=== PATIENT | male | born 1970 | race Caucasian/White ===

== ENCOUNTER 2017-05-07 15:36 | Emergency (ER) | payer OTHER ==
[~2017-05-07] VITALS: Ht 187.3 cm; Wt 105.0 kg
[2017-05-07 15:41] VITALS: BP 129/86; PULSE 106; RESP 16; O2SAT 99
--- NOTE | 2017-05-07 17:27 | ED.REPORT ---
HPI-Extremity Problem Lower Date of Service May 07, 2017 ED Provider: History of Present Illness: 46 year old male here for right ankle and knee pain and swelling. Onset about 5 days ago with his right ankle pain and swelling went down to his foot and then traveled up to above his knee. The pain is excruciating in his ankle and knee. Most pain is located over the ATFL on the right side as well as the medial joint line of the knee. No erythema noted. He had something similar 2 weeks ago in his left ankle for which he received NSAIDs and resolved. No history of psoriasis, no fever, no other joint pain, no URI symptoms or vomiting. He has noted a 13 pound weight loss, he states related to the pain. Denies recent forgein travel, no tick bites, no fever, no recent URI s/s. Nursing Notes Stated Complaint: RIGHT LEG BLOOD CLOT/SENT FROM [facility] Chief Complaint: Extremity Trauma Nursing Notes Reviewed: Yes Allergies: Coded Allergies: No Known Allergies (Unverified , 05/07/17) Scheduled Prednisone (PredniSONE) 20 Mg Tablet 20 MG PO BID Scheduled PRN oxyCODONE-Acetaminophen 5-325 mg (oxyCODONE-Acetaminophen 5-325 mg) 1 Each Tablet 1-2 TAB PO Q6H PRN PRN For Pain General Time Seen by MD: 17:03 Chief Complaint Knee injury right, Ankle injury right Hx Obtained From: Patient Onset Occurred: 5 days ago Symptom Duration: Constant Location: : Ankle right Severity: Current: Severe Severity: Maximum: Severe Pertinent Negative: Pt denies other symptoms Pertinent Negative: Relieved by nothing Recent Healthcare: Recent doctor visit Similar Sx Previous: Yes Past Medical History Past Medical History Notes: healthy Review of Systems Basic Review of Systems Eyes: Vision NL, No discharge ENT: Hearing NL, No pain, No nasal congestion, No pharyngeal pain Respiratory: No shortness of breath, No cough, No wheeze Cardiovascular: No chest pain, No dyspnea on exertion, No orthopnea, No parox noct dyspnea, No palpitations GI: No abdominal pain, No anorexia, No nausea, No vomiting : No dysuria, No frequency Endocrine: No cold intolerance, No heat intolerance, No weight gain, No weight loss Allergy / Immune: No allergy Psychiatric: Normal thought content Constitutional: Denies: Chills, Fatigue, Fever Musculoskeletal: Reports: Extremity pain, Extremity swelling, Joint pain, Joint swelling, Denies: Back pain Complete sys rev & neg: except as marked. Physical Exam Initial Vital Signs Vital Signs (First) Date Time Temp Pulse Resp B/P Pulse Ox O2 Delivery O2 Flow Rate FiO2 05/07/17 15:41 37.4 106 16 129/86 99 Room Air Initial VS: Reviewed, Vital signs normal General/Constitutional: Well-developed, Well-nourished Head / Eyes: Atraumatic, Normocephalic, PERRL ENT: Mucous membranes moist, Conjunctiva normal, No scleral icterus Neck: Supple, Non-tender, Full range of motion Respiratory: Breath sounds normal, Clear to auscultation, No respiratory distress Cardiovascular: Regular rate & rhythm, Heart sounds normal, Intact distal pulses Abdomen / GI: Soft, Non-tender, No guarding, No rebound, No distention Neurologic: Alert, Oriented, Nonfocal Psychiatric: Mood/affect normal, Behavior normal, Normal thought content Right knee- generalized moderate swelling. Generalized tenderness with most severe tenderness noted in the medial joint line area. Exam was limited because of pain. Right ankle- generalized swelling and tenderness, most tenderness over the ATFL. Decreased range of motion related to pain. Pedal pulses present. No erythema noted. Right lower extremity. No erythema noted mild swelling of his entire. Tenderness noted down both sides of castro but not to his calf. Interpretation & Diagnostics Interpretation & Diagnostics: OCEDURE: US VEINOUS LEG DUPLEX UNILATERAL, RIGHT INDICATIONS: pain/swelling TECHNIQUE: Real-time imaging, as well as color and pulse Doppler interrogation, were performed of the lower extremity deep veins from the inguinal ligament to the popliteal fossa. COMPARISON: None. FINDINGS: The deep veins are normally compressible, and free of intraluminal thrombus. Color and pulse Doppler demonstrate normal phasic intraluminal flow. There is normal augmentation response to distal compression maneuver. IMPRESSION: No DVT found. Lab Results Interpretation Result Diagram: 05/07/17 1803 05/07/17 1803 Test 05/07/17 18:03 White Blood Count 10.0th/mm3 (3.8-10.1) Red Blood Count 4.94mil/mm3 (4.40-5.80) Hemoglobin 15.4g/dL (13.8-17.2) Hematocrit 43.9% (41.0-50.0) Mean Corpuscular Volume 88.9fL (81-100) Mean Corpuscular Hemoglobin 31.2pg (27.0-35.0) Mean Corpuscular Hemoglobin Concent 35.1% (32.0-37.0) Red Cell Distribution Width 12.6% (12.3-15.4) Platelet Count 241bil/L (150-400) Neutrophils (%) (Auto) 71.0% (40-74) Lymphocytes (%) (Auto) 15.6% (14-46) Monocytes (%) (Auto) 12.7% (4-12) Eosinophils (%) (Auto) 0.4% (0-5) Basophils (%) (Auto) 0.2% (0-3) Erythrocyte Sedimentation Rate 23mm/hr (0-15) Sodium Level 141mEq/L (134-144) Potassium Level 4.8mEq/L (3.5-5.2) Chloride Level 101mEq/L (97-108) Carbon Dioxide Level 27mmol/L (18-29) Blood Urea Nitrogen 14mg/dL (6-24) Creatinine 0.83mg/dL (0.76-1.27) Estimat Glomerular Filtration Rate 106mL/min (>59) Glucose Level 103mg/dL (60-99) Calcium Level 9.4mg/dL (8.5-10.1) Total Bilirubin 0.6mg/dL (0.0-1.2) Aspartate Amino Transf (AST/SGOT) 26U/L (0-50) Alanine Aminotransferase (ALT/SGPT) 31U/L (0-44) Alkaline Phosphatase 50U/L (25-150) Total Protein 7.8g/dL (6.4-8.4) Albumin 4.3g/dL (3.4-5.0) Hold Kirby Top Tube Received (Received) X-Ray Interpretation Xray Interpretation: PROCEDURE: X-RAY RIGHT ANKLE, MINIMUM THREE VIEWS ([id number]) INDICATIONS: pain TECHNIQUE: 3 views of the ankle were acquired. COMPARISON: None. FINDINGS: Bones: No fractures or dislocations. Ankle mortise is normally aligned. No suspicious bony lesions. Soft tissues: No tibiotalar joint effusion. Achilles tendon appears normal. IMPRESSION: Source of pain is not found. Date of Service: 05/07/17 1761 PROCEDURE: X-RAY RIGHT KNEE, THREE VIEWS ([id number]) INDICATIONS: pain TECHNIQUE: A 3 views of the knee were acquired. COMPARISON: None. FINDINGS: Bones: No fractures or dislocations. No suspicious bony lesions. Soft tissues: No joint effusion. No suspicious soft tissue calcifications. IMPRESSION: Source of pain is not found. Re-Eval/Medical Decision Med Decision/Clinical Course 1949- dilaudid helped pain, US at bedside. xrays, labs normal at this point recheck with pt, still cannot bear wt. while resting no appreciable erythema of joints, mildly warm. mild-moderate swelling of R ankle and knee. esqueistly tender. pt states inc pain in am upon waking. nothing really makes pain improved. 2029- discussed case with Dr. Tamara Rivera hearing healthcare practitioner. Consider gout. Treat with anti-inflammatories. 2099- Dr. Godfrey a bedside for exam. Agrees with likely rheumatological origin. treat with steroids and close follow-up with room. Discharge & Departure Shift Change Sign-Out Laboratory Evaluation: Lab evaluation discussed Imaging Studies: Imaging discussed Procedures: Results discussed Impression: Primary Impression: Polyarticular arthritis Additional Impression: Weight loss Disposition: Home Patient Instructions: Knee Pain (ED), Rheumatoid Arthritis (GEN) Additional Instructions: We are unsure of your exact diagnosis but we suspect it is rheumatological in origin. Follow-up with telesales specialist, call Tuesday for next available appointment. Take your steroids as discussed. You were given one large dose tonight he may take 20 mg twice a day starting tomorrow. Use Percocet as needed for pain. Use crutches to be nonweightbearing. Activity as tolerated. Return immediately if you get fevers, vomiting or worsening symptoms. Follow-up with PCP early next week as well for comprehensive follow-up. For PCP purposes you may also follow-up with [facility] if you rather have a local pcp. Referrals: [facility] EDSupervising Provider for APC: Uche Godfrey MD copies to: Uche Godfrey MD, Linnea K ARNP May 07, 2017 17:27
[2017-05-07] MEDS ORDERED: HYDROmorphone 1 mg/mL Inj IM ONE ×2 (18:05→21:05)
[2017-05-07 18:25] LABS: BASOPHILS % (AUTO) 0.2 % (0-3); EOSINOPHILS % (AUTO) 0.4 % (0-5); MONOCYTES % (AUTO) 12.7 % (4-12); Mean Corpuscular Hemoglobin 31.2 pg (27.0-35.0); Mean Corpuscular Volume 88.9 fL (81-100); Platelet Count 241 bil/L (150-400)
--- NOTE | 2017-05-07 18:56 | DRSVH ---
PROCEDURE: X-RAY RIGHT KNEE, THREE VIEWS ([id number]) INDICATIONS: pain TECHNIQUE: A 3 views of the knee were acquired. COMPARISON: None. FINDINGS: Bones: No fractures or dislocations. No suspicious bony lesions. Soft tissues: No joint effusion. No suspicious soft tissue calcifications. IMPRESSION: Source of pain is not found. Dictated by: Esa Groves M.D. on 05/07/2017 at 18:55 Approved by: Esa Groves M.D. on 05/07/2017 at 18:55
--- NOTE | 2017-05-07 18:56 | DRSVH ---
PROCEDURE: X-RAY RIGHT ANKLE, MINIMUM THREE VIEWS ([id number]) INDICATIONS: pain TECHNIQUE: 3 views of the ankle were acquired. COMPARISON: None. FINDINGS: Bones: No fractures or dislocations. Ankle mortise is normally aligned. No suspicious bony lesions . Soft tissues: No tibiotalar joint effusion. Achilles tendon appears normal. IMPRESSION: Source of pain is not found. Dictated by: Esa Groves M.D. on 05/07/2017 at 18:54 Approved by: Esa Groves M.D. on 05/07/2017 at 18:55
[2017-05-07 19:09] VITALS: BP 130/85; PULSE 93; RESP 20; O2SAT 96
[2017-05-07 19:15] LABS: ERYTHROCYTE SEDIMENTATION RATE 23 mm/hr (0-15)
--- NOTE | 2017-05-07 20:19 | DRSVH ---
PROCEDURE: US VEINOUS LEG DUPLEX UNILATERAL, RIGHT INDICATIONS: pain/swelling TECHNIQUE: Real-time imaging, as well as color and pulse Doppler interrogation, were performed of the lower extr emity deep veins from the inguinal ligament to the popliteal fossa. COMPARISON: None. FINDINGS: The deep veins are normally compressible, and free of intraluminal thrombus. Color and pu lse Doppler demonstrate normal phasic intraluminal flow. There is normal augmentation response to di stal compression maneuver. IMPRESSION: No DVT found. Dictated by: Esa Groves M.D. on 05/07/2017 at 20:17 Approved by: Esa Groves M.D. on 05/07/2017 at 20:18
[2017-05-07] MEDS ORDERED: predniSONE 20 mg Tablet PO ONE (21:05)
[2017-05-07] MEDS ORDERED: PRE20 PO (21:09)
[2017-05-07] MEDS ORDERED: OXYC1TAB24 PO (21:09)
[2017-05-07 21:55] VITALS: BP 136/74; PULSE 100; RESP 20; O2SAT 96
== END 2017-05-07 21:56 | disposition home or self-care (01) ==
LOC: SED 15:36
DX: M13.0 Polyarthritis, unspecified (principal); R63.4 Abnormal weight loss
CPT/HCPCS: 36415; 73562; 73610; 80053; 85025; 85651; 86140; 93971; 96372; 99285; J1170; J1885